=== PATIENT | female | born 1960 | race Caucasian/White ===

== ENCOUNTER 2017-08-23 13:30 | Inpatient (IN) | payer BC, MEDICARE ==
[2017-09-04] MEDS ORDERED: FAMOTIDINE 20MG TABLET PO ONE (06:00)
[2017-09-04] MEDS ORDERED: VANCOMYCIN HCL 1,000 MG in DEXTROSE 5 % IN WATER 250 ML IVPB ONE ×2 (06:00)
[2017-09-04] MEDS ORDERED: ACETAMINOPHEN 1,000 MG/100 ML BTL IV ONE (06:00)
[2017-09-04] MEDS ORDERED: MECLIZINE 25 MG TABLET PO ONE (06:00)
[2017-09-04] MEDS ORDERED: METOCLOPRAMIDE 10 MG TABLET PO ONE (06:00)
[2017-09-04 07:54] LABS: ABO GROUP O; ANTIBODY SCREEN NEGATIVE (NEGATIVE); RH TYPE NEGATIVE
[2017-09-04] MEDS ORDERED: KETOROLAC 30 MG/ML VIAL IVP PRN ×2 (10:46)
[2017-09-04] MEDS ORDERED: DIPHENHYDRAMINE HCL 25 MG CAPSULE PO PRN (10:46)
[2017-09-04] MEDS ORDERED: ONDANSETRON HCL IV 4 MG/2 ML VIAL IVP PRN (10:46)
[2017-09-04] MEDS ORDERED: ACETAMINOPHEN 325 MG TAB PO PRN (10:46)
[2017-09-04] MEDS ORDERED: BISACODYL 10 MG SUPP RC PRN (10:46)
[2017-09-04] MEDS ORDERED: NALOXONE 0.4 MG/1 ML VIAL IVP PRN (10:46)
[2017-09-04] MEDS ORDERED: MAGNESIUM HYDROXIDE 30 ML UDC PO PRN (10:46)
[2017-09-04] MEDS ORDERED: ACETAMINOPHEN W/ CODEINE 300MG/60MG TABLET PO PRN ×2 (10:46)
[2017-09-04] MEDS ORDERED: HYDROCODONE/APAP 10/325 TABLET PO PRN (10:46)
[2017-09-04] MEDS ORDERED: ZOLPIDEM TARTRATE 5 MG TABLET PO PRN (10:46)
[2017-09-04] MEDS ORDERED: AL HYDROX/MAG HYDROX 30ML UD PO PRN (10:46)
[2017-09-04] MEDS ORDERED: HYDROMORPHONE HCL 2 MG/ML VIAL IM PRN (10:46)
[2017-09-04] MEDS ORDERED: OXYCODONE HCL 5 MG TABLET PO PRN (10:51)
[2017-09-04] MEDS ORDERED: FEXOFENADINE 180 MG PO PRN (11:16)
[2017-09-04] MEDS ORDERED: *PACU ONLY* KETAMINE HCL 10 MG/ML (20ML) VIAL IV ONE (14:00)
[2017-09-04] MEDS ORDERED: MIDAZOLAM HCL 2MG/2ML VIAL IV ONE (14:00)
[2017-09-04] MEDS ORDERED: PROPOFOL 10 MG/ML VIAL IV ONE (14:00)
[2017-09-04] MEDS ORDERED: DEXAMETHASONE 4 MG/ML 1ML VIAL IVP ONE (14:00)
[2017-09-04] MEDS ORDERED: FENTANYL PF 100MCG/2ML VIAL IV ONE ×2 (14:00→16:14)
[2017-09-04] MEDS ORDERED: ONDANSETRON HCL IV 4 MG/2 ML VIAL IVP ONE (14:00)
[2017-09-04] MEDS ORDERED: KETOROLAC 30 MG/ML VIAL IVP ONE (14:00)
[2017-09-04] MEDS ORDERED: EPHEDRINE SULFATE 50 MG/ML ML IV ONE (14:00)
[2017-09-04] MEDS: HYDROCODONE/APAP 10/325 TABLET PO PRN ×2 (14:43→22:59)
--- NOTE | 2017-09-04 14:59 | Rehab Evaluation ---
Patient Information - Patient Information Diagnosis: L knee DJD Ordered Treatment: PT Evaluate and Treat Status: Initial Evaluation Surgery: Yes (L TKA) Date of Surgery: 09/04/17 Past Medical/Surgical Hx: PAST MEDICAL/SURGICAL HISTORY Past Surgical History bonnie schaefer hyst laparoscope c scope PMH - Respiratory Hx Respiratory Disorders Yes Hx Asthma No Hx Bronchitis Yes Hx Chronic Obstructive No Pulmonary Disease (COPD) Hx Dyspnea No Hx Pneumonia No Hx Pulmonary Embolism No Hx Sleep Apnea No Hx Tuberculosis No Hx of CPAP No Comment: chronic sinus problems PMH - Cardiovascular Hx Cardiovascular Disorders Yes Hx Abnormal EKG No Hx Cardiac Catheterization No Hx Chest Pain No Hx Congestive Heart Failure No Hx Deep Vein Thrombosis No Hx Edema Yes Hx Heart Attack No Hx Hypertension No Hx Hypotension No Hx Irregular Heartbeat No Hx Palpitations No Hx Pacemaker/Defibrillator No Hx Vascular Disease No Hx Transient Ischemic Attacks No (TIA) Hx of Migraines Yes: not as frequent as they used to be Comment: blood pressure fluctuates with pain PMH - Neuro Hx Neurological Disorders Yes Hx Brain Tumor No Hx Cerebrovascular Accident No Hx Dementia No Hx Dizziness No Hx Headaches Yes: occassionally Hx Neuropathy Yes: CTS bilat Hx Parkinson's Disease No Hx Seizures No Hx Speech Problem No Hx Syncope No Hx Transient Ischemic Attacks No (TIA) PMH - GI Hx Gastrointestinal Disorders Yes Hx Abdominal Pain No Hx Celiac Disease No Hx Crohn's Disease No Hx Diverticulitis No Hx Gastrointestinal Bleed No Hx Gastroesophageal Reflux No Hx Hepatitis/Jaundice No Hx Hiatal Hernia No Hx Irritable Bowel Yes: controlled with diet Hx Liver Disease No Hx Nausea/Vomiting No Hx Obstructive Bowel No Hx Pancreatitis No Hx Rectal Bleeding No Hx Ulcer No Hx Weight Loss/Weight Gain No Comment: on omeprazole because of meds PMH - Hx Genitourinary Disorders Yes Hx Bladder Problem Yes: frequency. doing bladder training Hx Dialysis No Hx Kidney Stones No Hx Renal Disease No Hx Urinary Tract Infection Yes: used to get frequently Comment: s/p hyst PMH - Endocrine Hx Endocrine Disorders No Hx Diabetes No Hx Thyroid Disease Yes Comment: pt has a goiter has had since age 12. small no problems swallowing or sleep PMH - Musculoskeletal Hx Musculoskeletal Disorders Yes Hx Arthritis Yes: osteoarthritis Hx Back Injury No Hx Fibromyalgia Yes Hx Gout No Hx Musculoskeletal Disease No Hx Osteoporosis No PMH - Psych Hx Psychiatric Problems Yes Hx Anxiety Yes Hx Behavior Problems No Hx Depression Yes Hx Emotional Abuse No Hx Sexual Abuse No Hx Suicide Attempt No Major Depressive Episode Yes Feelings of Hopelessness No PMH - Hematology/Oncology Hx Hematology/Oncology Yes Disorders Hx Anemia Yes Hx Blood Disorders No Hx Bruising No Hx Cancer No Hx Chemotherapy No Hx Radiation Therapy No Hx Clotting Problems No Hx Sickle Cell Disease No Hx Unexplained Bleeding No Hx Blood Transfusion Reaction No Premorbid Status: Detail (Prior to surgery, the patient was independent with all mobility.) Social History: Detail (The patient lives with spouse in a 2 story house with 4 steps at the enterance with 2 railings.) Precautions: [place], Fall, Other (WBAT on the L LE.) - Time With Patient Total Time Spent With Patient (Min): 30 Treatment Procedures: Detail (Initial Evaluation) Subjective Information - Subjective Information Per Patient (The patient had only minimal complaints of pain and did not rate her pain using the 0 to 10 pain scale.) Objective Data - Mental Status Patient Orientation: Oriented x3 - Visual Perception Appears within normal limits for therapeutic activities - ROM Not within normal limits (The patient's L knee was not formally tested but is limited s/p surgery, all other LE AROM is WNL.) - Strength/Tone Not within normal limits (The patient's L LE strength was not formally secondary to s/p surgery, however patient's strength is functional ie: patient can complete a SLR. The patient R LE strength was generally 4 to 5/5.) - Bed Mobility Independent (The patient was independent with supine to and from sit transfer and scooting up in bed.) - Transfers Independent (The patient was independent with sit to and from stand transfer.) - Balance Balance Sitting: Good Balance Standing: Good - Sensation Intact - Gait Detail (The patient ambulated with wheeled walker, WBAT on the L LE a distance of 25 feet x 1 with supervision/CG for safety only.) Therapy Assessment - Therapy Assessment Detail (The patient was independent with bed mobility , transfers and required supervision for safety with ambulation. Feel the patient will progress well with mobility.) Patient Education - Patient Education Teaching Topic: Exercise/Activity (The patient completed the following TKA exercises: heel slides, SLR, quad sets, hamstring sets, gluteal sets and ankle pumps. The patient did have difficulty isolating her quad but did complete all exercises correctly.) Response: Return Demonstration Teaching Method: Discussion, Handout Teaching Recipient: Patient Barriers To Learning: Age Related Problem List - Problem List Physical Therapy Problem List: Detail (1) Decreased L knee AROM and LE strength 2) Non ambulatory on stairs) Goals - Goals Physical Therapy Goals: 1) The patient will ambulate on stairs with supervision for safety only. 2) The patient will ambulate with wheeled walker a distance of 50 to 75 feet WBAT on the L LE. Prognosis - Prognosis Good Plan - Plan Physical Therapy Plan: PT 1-2 times a day for gait training, instruction in HEP until all PT goals have been met.
[2017-09-04] MEDS ORDERED: TRANEXAMIC ACID 1,000 MG/10 ML ML IV ONE (16:16)
[2017-09-04] MEDS ORDERED: BUPIVACAINE 0.5% W/EPI MPF 30 ML VIAL IVP ONE (16:16)
[2017-09-04] MEDS: TRAMADOL HCL 50 MG TABLET PO PRN (16:51)
[2017-09-04] MEDS: POTASSIUM CHLORIDE/D5-0.9%NACL 20 MEQ/1,000 ML BAG IV SCH ×2 (18:30→20:42)
[2017-09-04] MEDS: VANCOMYCIN HCL 1,000 MG in DEXTROSE 5 % IN WATER 250 ML IVPB SCH ×2 (20:38)
[2017-09-04] MEDS: DOCUSATE SODIUM 100 MG CAPSULE PO SCH (21:29)
[2017-09-04] MEDS: OLOPATADINE EYE OPTH SCH (21:31)
[2017-09-04] MEDS ORDERED: CYCLOBENZAPRINE 10MG TABLET PO SCH (22:00)
[2017-09-05] MEDS: POTASSIUM CHLORIDE/D5-0.9%NACL 20 MEQ/1,000 ML BAG IV SCH (02:35)
[2017-09-05] MEDS: HYDROCODONE/APAP 10/325 TABLET PO PRN ×2 (05:36→11:18)
[2017-09-05 06:51] LABS: HEMATOCRIT 25.9 % (35.0-47.0); HEMOGLOBIN 8.3 gm/dl (11.6-16.0)
[2017-09-05] MEDS ORDERED: PANTOPRAZOLE SODIUM 40 MG TABLET PO SCH (07:00)
[2017-09-05 07:13] LABS: BLOOD UREA NITROGEN 10 mg/dL (6-20); CREATININE 0.6 mg/dL (0.5-0.9); EST GLOMERULAR FILTRATION RATE > 60 mL/min; GLUCOSE,RANDOM 119 mg/dL (74-109)
[2017-09-05] MEDS: VANCOMYCIN HCL 1,000 MG in DEXTROSE 5 % IN WATER 250 ML IVPB SCH ×2 (08:03)
[2017-09-05] MEDS: DOCUSATE SODIUM 100 MG CAPSULE PO SCH (09:58)
[2017-09-05] MEDS: TRAMADOL HCL 50 MG TABLET PO PRN (09:59)
[2017-09-05] MEDS ORDERED: FERROUS SULFATE 325 MG TAB PO SCH (10:00)
[2017-09-05] MEDS ORDERED: RIVAROXABAN 10 MG TABLET PO SCH (10:00)
[2017-09-05] MEDS ORDERED: FLUOXETINE HCL 20 MG CAPSULE PO SCH (10:00)
[2017-09-05] MEDS: OLOPATADINE EYE OPTH SCH (10:01)
--- NOTE | 2017-09-05 11:51 | Physical Therapy Tx Note ---
Physical Therapy Tx Note - Treatment Note Tolerated: Good Total Time Spent With Patient: 20 Physical Therapy Tx Note: Detail (The patient was in bed when PT arrived. The patient ambulated 134 feet with wheeled walker, WBAT on the L LE independently, the patient required verbal cues to walk normally. The patient ambulated on 3 steps with use of railing and folded walker with supervision for safety only. The patient's was present to observe stair climbing technique. The patient has met all inpatient PT goals and is discharged from inpt. PT.) Physical Therapy Problem List: Detail (1) Decreased L knee AROM and LE strength 2) Non ambulatory on stairs) Physical Therapy Goals: GOALS MET:1) The patient will ambulate on stairs with supervision for safety only. 2) The patient will ambulate with wheeled walker a distance of 50 to 75 feet WBAT on the L LE. Physical Therapy Plan: The patient's PT goals have been met. The patient is discharged from inpatient PT and is to receive Home PT.
--- NOTE | 2017-09-05 12:32 | Rehab Evaluation ---
Patient Information - Patient Information Diagnosis: L knee DJD Ordered Treatment: OT Evaluate and Treat Status: Initial Evaluation Surgery: Yes (L TKA) Date of Surgery: 09/04/17 Past Medical/Surgical Hx: PAST MEDICAL/SURGICAL HISTORY Past Surgical History bonnie schaefer hyst laparoscope c scope PMH - Respiratory Hx Respiratory Disorders Yes Hx Asthma No Hx Bronchitis Yes Hx Chronic Obstructive No Pulmonary Disease (COPD) Hx Dyspnea No Hx Pneumonia No Hx Pulmonary Embolism No Hx Sleep Apnea No Hx Tuberculosis No Hx of CPAP No Comment: chronic sinus problems PMH - Cardiovascular Hx Cardiovascular Disorders Yes Hx Abnormal EKG No Hx Cardiac Catheterization No Hx Chest Pain No Hx Congestive Heart Failure No Hx Deep Vein Thrombosis No Hx Edema Yes Hx Heart Attack No Hx Hypertension No Hx Hypotension No Hx Irregular Heartbeat No Hx Palpitations No Hx Pacemaker/Defibrillator No Hx Vascular Disease No Hx Transient Ischemic Attacks No (TIA) Hx of Migraines Yes: not as frequent as they used to be Comment: blood pressure fluctuates with pain PMH - Neuro Hx Neurological Disorders Yes Hx Brain Tumor No Hx Cerebrovascular Accident No Hx Dementia No Hx Dizziness No Hx Headaches Yes: occassionally Hx Neuropathy Yes: CTS bilat Hx Parkinson's Disease No Hx Seizures No Hx Speech Problem No Hx Syncope No Hx Transient Ischemic Attacks No (TIA) PMH - GI Hx Gastrointestinal Disorders Yes Hx Abdominal Pain No Hx Celiac Disease No Hx Crohn's Disease No Hx Diverticulitis No Hx Gastrointestinal Bleed No Hx Gastroesophageal Reflux No Hx Hepatitis/Jaundice No Hx Hiatal Hernia No Hx Irritable Bowel Yes: controlled with diet Hx Liver Disease No Hx Nausea/Vomiting No Hx Obstructive Bowel No Hx Pancreatitis No Hx Rectal Bleeding No Hx Ulcer No Hx Weight Loss/Weight Gain No Comment: on omeprazole because of meds PMH - Hx Genitourinary Disorders Yes Hx Bladder Problem Yes: frequency. doing bladder training Hx Dialysis No Hx Kidney Stones No Hx Renal Disease No Hx Urinary Tract Infection Yes: used to get frequently Comment: s/p hyst PMH - Endocrine Hx Endocrine Disorders No Hx Diabetes No Hx Thyroid Disease Yes Comment: pt has a goiter has had since age 12. small no problems swallowing or sleep PMH - Musculoskeletal Hx Musculoskeletal Disorders Yes Hx Arthritis Yes: osteoarthritis Hx Back Injury No Hx Fibromyalgia Yes Hx Gout No Hx Musculoskeletal Disease No Hx Osteoporosis No PMH - Psych Hx Psychiatric Problems Yes Hx Anxiety Yes Hx Behavior Problems No Hx Depression Yes Hx Emotional Abuse No Hx Sexual Abuse No Hx Suicide Attempt No Major Depressive Episode Yes Feelings of Hopelessness No PMH - Hematology/Oncology Hx Hematology/Oncology Yes Disorders Hx Anemia Yes Hx Blood Disorders No Hx Bruising No Hx Cancer No Hx Chemotherapy No Hx Radiation Therapy No Hx Clotting Problems No Hx Sickle Cell Disease No Hx Unexplained Bleeding No Hx Blood Transfusion Reaction No Premorbid Status: Detail (Prior to surgery, the patient was independent with all mobility and I/ADL tasks.) Social History: Detail (The patient lives with spouse in a 2 story house with 4 steps at the enterance with 2 railings. The bathroom is equipped with a tub/ shower, shower chair, hand held shower head, grab bars, and toilet seat riser. Pt also has a 2WW and SPC.) Precautions: [place], Fall, Other (WBAT on the L LE.) - Time With Patient Total Time Spent With Patient (Min): 20 Treatment Procedures: Detail (Initial Evaluation: Low Complexity. Completed by OT student Tabitha Pham under direct supervision of OTRL. Pt. was left at end of session lying supine in bed with call light and bedside table within reach.) Subjective Information - Subjective Information Per Patient (Pt stated she is right hand dominant, has arthritis, and fibromyalgia. Pt also stated her bedroom and bathroom are on the main level of the 2 story house.) Objective Data - Pain Pain Present: Yes Pain Scale Used: Numeric (1 - 10) (Pt reported pain in left knee as 3 or 4 out of 10 and described it as feeling "tolerable" but "achy".) - Mental Status Patient Orientation: Oriented x3 - Visual Perception Appears within normal limits for therapeutic activities - ROM Within normal limits (BUE AROM WNL in all planes.) - Strength/Tone Within normal limits (MMT-RUE 4-/5 in all planes and LUE 3+/5 in all planes. Pt. reported pain in Jesus Alberto. shoulders during MMT, so was just tested to tolerance. ) - Coordination Appears within normal limits for therapeutic activities - Bed Mobility Independent (Supine<>SS EOB modified Indp. with head of bed raised but no use of bed rails.) - Transfers Independent (SS EOB<>standing with 2WW Indp. with proper hand placement.) - Balance Balance Sitting: Good Balance Standing: Fair (Requires 2WW for support at this time.) - Sensation Intact (BUE light touch to volar fingertips intact.) - ADL's/IADL's Detail (Educated pt on adaptive LB dressing techniques. Pt returned demonstration and verbalized understanding. UB dressing not completed d/t IV running. LB dressing donning pants and donning/doffing left sock Indp. with Ind. initiation of adaptive LB dressing techniques. Pt stated she plans on sponge bathing for the first few days upon returning home, until she feels more comfortable/safe to bathe using her typical habits.) Therapy Assessment - Therapy Assessment Detail (ADL tasks completed safely and independently and no longer requires inpatient skilled OT services at this time. Pt's home enviornment has a good set up with AE and AD for maximized independence. Pt also has a good support system with spouse available to assist as needed and she plans on receiving home care upon returning home. Pt. presented with BUE weakness, and may benefit from future PT/OT services for strengthening exercises to prevent further loss of function.) Patient Education - Patient Education Teaching Topic: Other (adaptive dressing techniques) Response: Return Demonstration, Verbalize Understanding Teaching Method: Discussion Teaching Recipient: Patient Barriers To Learning: None Problem List - Problem List Physical Therapy Problem List: Detail (1) Decreased L knee AROM and LE strength 2) Non ambulatory on stairs) Goals - Goals Physical Therapy Goals: GOALS MET:1) The patient will ambulate on stairs with supervision for safety only. 2) The patient will ambulate with wheeled walker a distance of 50 to 75 feet WBAT on the L LE. Prognosis - Prognosis Good Plan - Plan Physical Therapy Plan: The patient's PT goals have been met. The patient is discharged from inpatient PT and is to receive Home PT. Occupational Therapy Plan: D/C from inpatient skilled OT services at this time. Pt stated she had no further questions or concerns regarding return home. Pt was also educated to call the rehab department if any questions or concerns arise after returning home.
--- NOTE | 2017-09-05 19:28 | Operative Note ---
DATE: 09/04/2017 PREOPERATIVE DIAGNOSIS: END-STAGE ARTHROSIS OF THE LEFT KNEE. POSTOPERATIVE DIAGNOSIS: END-STAGE ARTHROSIS OF THE LEFT KNEE. PROCEDURE: CEMENTED LEFT TOTAL KNEE ARTHROPLASTY USING VALERA & NEPHEW JOSEF II COMPONENTS , WITH A SIZE 5 OXINIUM FEMUR, SIZE 4 STEMMED TIBIAL BASEPLATE, A 9 MM LIPPED TIBIAL INSERT, AND A 35 MM ALL-PLASTIC PATELLA. STAFF SURGEON: ZEKE CHILEL M.D. ANESTHESIA: SPINAL. PREPARATION: CHLORAPREP. INDIVIDUAL CONSIDERATIONS: None. PROCEDURE: The patient was taken to the Operating Room and placed supine on the operating table. She had a successful induction of a spinal anesthetic. Her left lower extremity was prepped and then draped in the usual fashion. The limb was elevated and the tourniquet was inflated to 250 mmHg. The patient had a midline approach to the knee. Sharp dissection carried down through the skin and subcutaneous tissue. Small veins were coagulated with a Bovie. A medial arthrotomy was performed. The patella was everted and the knee was flexed. She had exposed bone with bone loss in the medial and patellofemoral compartments. The fat pad was resected, the ACL was sacrificed, provisional anterior meniscectomies were performed, and the capsule was released from the medial proximal tibia. An initial femoral [place] pilot hole was then made free hand. The intramedullary femoral cutting jig was placed. It was cut in 7.2 degrees of valgus and adjusted for rotation and secured with pins. It was set for a 10 mm resection. The initial transverse cut was then made. A skin guide was placed for the anterior and posterior [place] pilot holes. It was found that a size 5 would be appropriate from medial lateral but I needed to translate it anteriorly so as not to notch. This was done with a translation block at 2 mm. The anterior and posterior cuts followed by chamfer cuts were made, osteophytes were removed, and a size 5 trial was placed and found to fit well. The tibia was brought forward and the remainder of the meniscal remnants were removed with a Bovie. The extraarticular tibial cutting jig was placed. It was cut in neutral with a 3-degree AP slope. Care was taken to adjust for rotation and flexion using the extraarticular alignment guide and bony landmarks. It was set for a 9 mm resection, keyed off the high lateral side and secured with pins. When cutting the tibia, care was taken to preserve the PCL insertion on the tibia. After removing large medial osteophytes, I was able to fit a size 4 baseplate. It was adjusted for rotation and secured with pins. With a 9 mm trial and the femoral trial, there was excellent motion and stability. Ligamentous balance, rotation, and alignment were thought to be normal. The femoral [place] pilot holes were impacted and the triflange tibial stamp was impacted and these trial components were removed. The tourniquet was let down briefly to get bleeders posteriorly and then placed back up again. The patella was cut free hand, taking roughly 9 mm of bone. She had a reasonably thick patella. I was able to fit a 35 patella and the three [place] pilot holes were then drilled. The knee was then thoroughly irrigated out with pulsatile Betadine and saline to remove any visual or palpable debris. The bony surfaces were then dried. A size 4 stemmed tibial baseplate was cemented into place followed by impaction of the 9 mm lipped highly-crosslinked tibial insert followed by cementing in the size 5 Oxinium femur followed by cementing in of the 35 mm patella. Implant surfaces were compressed, excess cement was removed and after the cement had set, there was excellent motion and stability. Ligamentous balance, rotation, alignment, and patellofemoral tracking were normal. No lateral release was required. After thorough irrigation again, the tourniquet was let down and hemostasis was obtained with a Bovie. The capsule was then closed with running #2 Quill. The subcu was closed with running #0 Quill. The skin was closed with philippe. Prior to closure, I did infiltrate the skin and subcutaneous tissue with 30 mL of 0.5% Marcaine with Epinephrine. A sterile [place] compressive Aquacel-type dressing was applied. I also injected the knee prior to closure with 30 mL of water mixed with 1 gram of Tranexamic acid. She did receive 1 gram of Tranexamic IV. The patient tolerated the procedure well. Needle and sponge counts were correct, estimated blood loss was minimal, and she was taken back to Recovery in good condition. There were no complications. JOB NUMBER: [id number] [facility]
--- NOTE | 2017-09-05 20:36 | Discharge Summary ---
DATE OF ADMISSION: 09/04/2017 DATE OF DISCHARGE: 09/05/2017 DATE OF SURGERY: 09/04/2017 HISTORY: Radhames is a delightful 57-year-old female who presents with end-stage arthrosis of her left knee. She was admitted after total knee arthroplasty. Postoperatively, she did well except for pain. The first post-op day, she was independent and wanted to go home. DISCHARGE INSTRUCTIONS: The plan was to discharge her to home in the care of her family. Home PT and Visiting Nurse has been arranged. She will be given [place] and Oxy IR for pain. She will be given Xarelto followed by Aspirin for DVT prophylaxis. The Visiting Nurse will remove her sutures in two weeks. She will follow-up in my office in four weeks. Her discharge hemoglobin was 8.8 and she did not require a transfusion. She does have chronic anemia. Her discharge condition was good. FINAL DIAGNOSIS/PRIMARY DIAGNOSIS: END-STAGE ARTHROSIS OF THE LEFT KNEE. SECONDARY DIAGNOSIS: OPERATIVE BLOOD LOSS ANEMIA. OPERATIONS AND PROCEDURES: CEMENTED LEFT TOTAL KNEE ARTHROPLASTY. JOB NUMBER: [id number] [facility]
[2017-09-06] MEDS ORDERED: ESTRADIOL 1 MG PO SCH (10:00)
== END 2017-09-05 16:52 | disposition home health service (06) | DRG 470 ==
LOC: MEDSURG 09-04 06:52
PROVIDERS: ADMIT Orthopaedic Surgery; ATTEND Orthopaedic Surgery
PROC: 0SRD069 Replacement of Left Knee Joint with Oxidized Zirconium on Polyethylene Synthetic Substitute, Cemented, Open Approach (ICD-10-PCS; principal; 2017-09-04 09:00)
DX: M17.12 Unilateral primary osteoarthritis, left knee (principal); M19.90 Unspecified osteoarthritis, unspecified site; M79.7 Fibromyalgia
CPT/HCPCS: 80048; 85014; 85018; 86850; 86900; 86901; 97110; J1885; J2405; J3480; J7060